=== PATIENT | male | born 1995 | race Caucasian/White ===

== ENCOUNTER 2017-07-16 16:44 | Inpatient (IN) | payer OTHER ==
[~2017-07-16] VITALS: Ht 172.7 cm; Wt 87.0 kg
[2017-07-16 17:13] LABS: MEAN CORPUSCULAR HEMOGLOBIN 31.5 pg (27.0-33.0); MEAN CORPUSCULAR HGB CONC 35.3 g/dl (32.0-36.5); MEAN CORPUSCULAR VOLUME 89.2 fl (80.0-96.0); RED CELL DISTRIBUTION WIDTH 12.8 % (11.5-14.5); WHITE BLOOD COUNT 7.8 K/mm3 (4.0-10.0)
[2017-07-16 17:40] LABS: ALBUMIN 4.1 GM/DL (3.2-5.2); ALBUMIN/GLOBULIN RATIO 1.17 (1.00-1.93); ALKALINE PHOSPHATASE 108 U/L (45-117); ALT/SGPT 32 U/L (12-78); ANION GAP 8 MEQ/L (8-16); AST/SGOT 17 U/L (15-37); BILIRUBIN,DIRECT < 0.1 MG/DL (0.0-0.2); BILIRUBIN,TOTAL 0.2 MG/DL (0.2-1.0); BLOOD UREA NITROGEN 14 MG/DL (7-18); CALCIUM LEVEL 8.8 MG/DL (8.5-10.1); CARBON DIOXIDE LEVEL 26 MEQ/L (21-32); CHLORIDE LEVEL 108 MEQ/L (98-107); GLUCOSE, FASTING 103 MG/DL (70-105); POTASSIUM SERUM 4.1 MEQ/L (3.5-5.1); SODIUM LEVEL 142 MEQ/L (136-145); TOTAL PROTEIN 7.6 GM/DL (6.4-8.2)
[2017-07-16 17:50] LABS: METHADONE URINE NEGATIVE (NEGATIVE)
[2017-07-16 20:55] VITALS: BP 143/76
[2017-07-16] MEDS ORDERED: MAALOX 30 ML SUSP *UDC PO PRN (22:30)
[2017-07-16] MEDS ORDERED: MOM 30ML SUSPENSION UDC PO PRN (22:30)
[2017-07-16] MEDS ORDERED: traZODone 50 MG TAB PO PRN (22:30)
[2017-07-16] MEDS ORDERED: ACETAMINOPHEN TAB 650MG DOSE (2X325MG) PO PRN (22:30)
[2017-07-17 06:24] VITALS: BP 127/58
[2017-07-17] MEDS ORDERED: CitaloPRAM (CeleXA) 10 MG TABLET PO SCH (09:00)
--- NOTE | 2017-07-17 09:23 | HPEPDOC ---
Medical History and Physical Date of Admission Jul 16, 2017 at 19:20 History and Physical PCP: [facility] ATTENDING: Dr. Emanuel Ulrich HPI: 21yo M admitted to [facility] for unspecified depressive disorder, being medically examined today. No acute medical complaints today. Denies any fevers, chills, weakness, fatigue, OSORIO, CP, SOB, cough, palpitations, abdominal pain, N/V /D or changes in bowel or bladder habits. 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 ROS: As noted in HPI, otherwise 11pt ROS of systems reviewed and unremarkable. PE: GEN: 21yo M, appears stated age. Well-nourished, well developed. No acute distress. Alert and oriented x 3. Pleasant, interactive. HEENT: Normocephalic, atraumatic. Pupils are equal, round, and reactive to light. Extraocular movements are intact. No nystagmus appreciated. Sclera are nonicteric. Conjunctiva without injection. Nose midline. Nasal turbinates without bogginess. EACs both patent BL. TMs both visualized and [place] with good cone of light, no bulging or erythema. No facial asymmetry. Moist mucous membranes. Dentition fair. Pharynx pink and moist, no cobblestoning. Neck supple , trachea midline. No lymphadenopathy or thyromegaly appreciated. CHEST: Regular rate and rhythm, +S1, +S2 LUNGS: Clear to auscultation bilaterally. No wheezes, rales, or rhonchi. Breathing appears symmetric and easy. Patient is speaking in full sentences. No accessory muscle use. ABD: Round, soft, non-tender, non-distended. +Bowel sounds throughout. No rebound or guarding. No costovertebral angle tenderness. EXT: Pulses 2+ bilaterally dorsalis pedis and radial. No lower extremity edema appreciated. SKIN: [place], dry, warm. Capillary refill <2sec. No rashes. NEURO: Alert and oriented x 3. Cranial nerves III-XII are intact. No focal deficits appreciated. EKG: Pending A&P: 21yo M admitted to [facility] for unspecified depressive disorder, 1. Psych. Plan per Psychiatry. Obtain baseline EKG to assure the safety of psychiatric medications as they can prolong the QT interval. 2. Follow up with PCP on discharge. 3. Staff member Bill present throughout exam. Vital Signs Vital Signs Date Time Temp Pulse Resp B/P (MAP) Pulse Ox O2 Delivery O2 Flow Rate FiO2 07/17/17 06:24 98.4 70 16 127/58 (81) Room Air 07/16/17 20:36 98 Laboratory Data Labs 24H Laboratory Tests 2 07/16/17 17:00: Anion Gap 8, Calcium Level 8.8, Aspartate Amino Transf (AST/SGOT) 17, Alanine Aminotransferase (ALT/SGPT) 32, Alkaline Phosphatase 108, Total Bilirubin 0.2, Direct Bilirubin < 0.1, Total Protein 7.6, Albumin 4.1, Albumin/Globulin Ratio 1.17, Thyroid Stimulating Hormone (TSH) 2.410, Salicylates Level < 1.7L, Acetaminophen Level < 2.0L, Ethyl Alcohol Level < 0.003 07/16/17 17:01: Urine Amphetamines Screen NEGATIVE, Urine Benzodiazepines Screen NEGATIVE, Urine Opiates Screen NEGATIVE, Urine Methadone Screen NEGATIVE, Urine Barbiturates Screen NEGATIVE, Urine Phencyclidine Screen NEGATIVE, Urine Cocaine Metabolite Screen NEGATIVE, Urine Cannabinoids Screen NEGATIVE CBC/BMP Laboratory Tests 07/16/17 17:00 Red Blood Count 4.75, Mean Corpuscular Volume 89.2, Mean Corpuscular Hemoglobin 31.5, Mean Corpuscular Hemoglobin Concent 35.3, Red Cell Distribution Width 12.8 Home Medications No Active Prescriptions or Reported Meds Allergies Coded Allergies: No Known Drug Allergy (Verified Allergy, Unknown, 07/16/17) Joann Tracy Jul 17, 2017 09:22
[2017-07-17 18:00] VITALS: BP 178/65
[2017-07-17] MEDS: traZODone 50 MG TAB PO SCH (21:53)
[2017-07-18 06:54] VITALS: BP 135/61
[2017-07-18] MEDS: CitaloPRAM (CeleXA) 20 MG TAB PO SCH (09:39)
--- NOTE | 2017-07-18 12:01 | ECGEPIP ---
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
[2017-07-18 18:00] VITALS: BP 131/63
[2017-07-18] MEDS: traZODone 50 MG TAB PO SCH (22:16)
[2017-07-19 07:04] VITALS: BP 127/68
[2017-07-19] MEDS: CitaloPRAM (CeleXA) 20 MG TAB PO SCH (08:58)
--- NOTE | 2017-07-19 13:06 | MHHPE ---
DATE OF ADMISSION: 07/16/2017 CURRENT MEDICATIONS: None. CHIEF COMPLAINT: Suicidal attempt by suffocating himself with helium. 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 The patient had been researching different ways to commit suicide on the internet. He decided to suffocate himself with helium hooked up to a respirator. He did pass out for about 1 hour, but then woke up. He was disappointed and distressed when he woke up alive. He had other suicidal thoughts such as gunshot or by hanging. His major stress is his job in the [employer]. He finds it very physically demanding. He does not sleep well at night and is often tired and fatigued during the daytime because of this. He gets little pleasure out of life. Life has no meaning for him. His level of energy is poor. Motivation is poor. He has no social contacts. Concentration is poor. He states his appetite fluctuates either up or down. He has gained 6-10 pounds recently. He has no difficulty with PT but does not do any extra. The patient is schedule to be deployed to [place] in July. He admits that this might have contributed to his suicide attempt. No history of panic attacks, obsessive-compulsive disorder (OCD) or posttraumatic stress disorder (PTSD). He does have a history of social phobic symptoms. He does not like being the center of attention. He had very few friends in high school. He has no social network her at the [facility]. Caffeine consumption is moderate to high. He drinks at least one energy drink a day as well as at least one pot of coffee per day. He is warned about caffeine consumption. He is not in current mental health treatment at the [facility]. The patient presented himself to the clinic requesting help. PAST PSYCHIATRIC HISTORY: The patient has never been hospitalized before. He has never been on psychotropics before. No previous history of suicide attempts. He has never seen a psychiatrist before or had therapy. PAST MEDICAL HISTORY: Patient healthy. ALLERGIES TO MEDICATIONS: Patient denies. LEGAL HISTORY: None noted. CHEMICAL DEPENDENCY: Patient denies. FAMILY PSYCH HISTORY: Patient denies. SOCIAL HISTORY: Patient born and raised in [place]. He is a high school graduate. He went into the [employer] right out of high school. Relationship with his parents are good. He has one brother and two sisters. Relationship with them are good as well. WORK HISTORY: Aside from the [employer], is minimal. 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 MENTAL STATUS EXAMINATION: Patient is alert, oriented and cooperative. Affect appears sad. Mood is moderately to severely depressed with recent suicidal ideation and attempt. He is not hearing voices. No paranoia or thought disorder. Patient reports social phobic symptoms. Insight and judgment appear limited. He is a potential danger to himself. Memory functions appear intact. Grooming and hygiene appear good. DIAGNOSIS: Major depression, severe. Social anxiety disorder. PLAN: 39 confirmed. Patient to start a trial of citalopram with the use of trazodone at bedtime for sleep. Patient encouraged to become active in the hospital milieu. Patient informed that today is my last day of working here and that he will have a new psychiatric provider next week.
[2017-07-19 18:00] VITALS: BP 120/59
[2017-07-19] MEDS: traZODone 50 MG TAB PO SCH (22:14)
[2017-07-20 06:27] VITALS: BP 139/65
--- NOTE | 2017-07-20 07:45 | MHIPN ---
DATE: 07/18/2017 CHIEF COMPLAINT: Feels better. SUBJECTIVE: Seen for followup. Indicates feels better, less anxious, less depressed. Says sleep is okay. He denies any suicidal thoughts or intents. MENTAL STATUS EXAMINATION: Neat and cooperative. No agitation. No psychomotor retardation. Coherent. Affect is reactive. Denies any suicidal thoughts or intents. No homicidal ideas or intents. No evidence of any psychosis at present. Judgment and insight are fair. ASSESSMENT: Unspecified depressive disorder. PLAN: Continue current care, observations, encourage participation in activities in the unit. He is also to continue with citalopram at 20 mg daily. VITAL SIGNS: Blood pressure 135/61. Pulse 68. Temperature 96.9.
[2017-07-20] MEDS: CitaloPRAM (CeleXA) 20 MG TAB PO SCH (10:33)
--- NOTE | 2017-07-20 17:21 | MHIPNPDOC ---
[facility] Progress Note Progress Note DATE OF SERVICE: 07/20/17 HISTORY: Patient was seen and evaluated for his progress in the inpatient unit. On evaluation, patient reported that he has been feeling less depressed and able to take a break from his job. He described the events which led up to his admission to the inpatient unit and reported that he was depressed because of the job. He thinks that he is not appreciated in the [employer] and everybody around him, has been making him feel down because of that he was thinking about suicide for month to 2 months and he researched about pain less suicide made him think about using helium to , but now he feels much better and thinks that he does not want to and happy about not dying with that attempt. He currently denies any suicidal or homicidal ideations sleeping and eating well and planning to go back to college to finish his college. Encouraged to participate in the unit activities and also interact with others in the unit. VITAL SIGNS: See below. CURRENT MEDICATIONS: See below. 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 Major depression without psychotic features. ASSESSMENT: Patient seemed to be improving on current treatment MANAGEMENT PLAN:, Possible increase in Celexa. Continue other treatment. TIME SPENT: 15 minutes. Vital Signs Vital Signs Date Time Temp Pulse Resp B/P (MAP) Pulse Ox O2 Delivery O2 Flow Rate FiO2 07/20/17 06:27 97.7 60 16 139/65 (89) Room Air 07/16/17 20:36 98 Current Medications Current Medications Citalopram Hydrobromide (CeleXA) 20 mg DAILY PO Last administered on 07/20/17t 10:33; Start 07/18/17 at 09:00; Stop 08/17/17 at 08:59 Trazodone HCl (Desyrel) 50 mg QHS PO Last administered on 07/19/17 22:14; Start 07/17/17 at 21:00; Stop 08/15/17 at 22:29 Allergies Coded Allergies: No Known Drug Allergy (Verified Allergy, Unknown, 07/16/17) DEON QUIJANO MD Jul 20, 2017 17:21
[2017-07-20 18:00] VITALS: BP 112/59
[2017-07-20] MEDS: traZODone 50 MG TAB PO SCH (21:19)
--- NOTE | 2017-07-20 22:06 | MHIPN ---
DATE: 07/19/2017 CHIEF COMPLAINT: Says feels better. SUBJECTIVE: He is seen for followup. Indicates feels good, and that he had a good night. Mood is improved, feels less anxious, appetite is good. MENTAL STATUS EXAMINATION: He is sitting up in bed. He is cooperative. He is coherent. No agitation. No psychomotor retardation. Affect fairly broad. He denies any thoughts of harming himself or anyone else. No evidence of any psychosis. Cognition grossly intact. Judgment good. Insight is fair. ASSESSMENT: Unspecified depressive disorder. PLAN: He is to continue the current care and observations. He is to be encouraged to participate in activities in the unit. VITAL SIGNS: Blood pressure 127/68, pulse 63, temperature 97.8.
[2017-07-21 07:37] VITALS: BP 110/56
[2017-07-21] MEDS: CitaloPRAM (CeleXA) 10 MG TABLET PO SCH (09:07)
[2017-07-21 18:00] VITALS: BP 139/75
--- NOTE | 2017-07-21 19:02 | MHIPNPDOC ---
[facility] Progress Note Progress Note DATE OF SERVICE: 07/21/17 HISTORY: Patient was seen and evaluated for his progress in the inpatient psychiatric unit on the evaluation. Patient reported that he has been feeling fine and less depressed but he remains in his room most of the day and does not participate in any activities in the unit. He sleeps late during the day and does not interact with anyone in the unit, even after multiple encouragement. He denies any suicidal or homicidal ideations, but seemed to be minimizing his symptoms of depression. He denies any recent anxiety attacks, but reported that his anxiety is mostly connected to his work place because they stresses him out. He is eating fine and denies any recent weight loss or gain. He reported that he was able to tolerate the increased dose of Celexa and denies any side effects of the medications. VITAL SIGNS: See below. CURRENT MEDICATIONS: Citalopram Hydrobromide (CeleXA) 20 mg DAILY PO Last administered on 07/20/17 10:33; Start 07/18/17 at 09:00; Stop 08/17/17 at 08:59 Trazodone HCl (Desyrel) 50 mg QHS PO Last administered on 07/19/17 22:14; Start 07/17/17 at 21:00; Stop 08/15/17 at 22:29 MENTAL STATUS EXAMINATION: 21yo male sitting in the chair, looks appropriate for the stated age, fair hygiene and grooming, normal psychomotor activities, no abnormal movements, cooperative with fair eye contact, speech is normal in rate, rhythm, amount and prosody, mood is 'fine', affect full and mood congruent, thought process is logical and goal directed, denies suicidal and homicidal ideations, denies hallucinations, no delusions elicited, aaox3, fair immediate, short term and nursing home memory, limited insight, judgement and fair impulse control DIAGNOSES: 1. Major depression without psychotic features. ASSESSMENT: Patient's symptom be minimizing his symptoms and currently denies any suicidal or homicidal ideations MANAGEMENT PLAN:. Continue current treatment. TIME SPENT: 15 minutes. Vital Signs Vital Signs Date Time Temp Pulse Resp B/P (MAP) Pulse Ox O2 Delivery O2 Flow Rate FiO2 07/21/17 18:00 98.1 74 16 139/75 (96) Room Air 07/16/17 20:36 98 Allergies Coded Allergies: No Known Drug Allergy (Verified Allergy, Unknown, 07/16/17) DEON QUIJANO MD Jul 21, 2017 19:02
[2017-07-21] MEDS: traZODone 50 MG TAB PO SCH (21:24)
[2017-07-22 06:55] VITALS: BP 118/60
[2017-07-22] MEDS: CitaloPRAM (CeleXA) 10 MG TABLET PO SCH (08:41)
--- NOTE | 2017-07-22 17:46 | MHIPNPDOC ---
[facility] Progress Note Progress Note DATE OF SERVICE: 07/22/17 HISTORY: Patient was seen lying in the bed. He makes to himself and most of her time in his room mid-very few interaction with others in the unit and limited participation in the unit activities. Patient was encouraged again to participate more in the unit activities. He continues to deny any suicidal or homicidal ideations, but seems to be internally preoccupied. He is able to tolerate increased doses of the current medication Celexa and denies any side effects of the medications sleeping and eating fine and denies any psychotic symptoms. VITAL SIGNS: See below. 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 Major depression without psychotic features. ASSESSMENT: Patient's symptom be minimizing his symptoms and currently denies any suicidal or homicidal ideations MANAGEMENT PLAN:. Continue current treatment. TIME SPENT: 15 minutes. Vital Signs Vital Signs Date Time Temp Pulse Resp B/P (MAP) Pulse Ox O2 Delivery O2 Flow Rate FiO2 07/22/17 06:55 98.4 62 16 118/60 (79) 07/21/17 18:00 Room Air 07/16/17 20:36 98 Allergies Coded Allergies: No Known Drug Allergy (Verified Allergy, Unknown, 07/16/17) DEON QUIJANO MD Jul 22, 2017 17:46
[2017-07-22 18:00] VITALS: BP 121/60
[2017-07-22] MEDS: traZODone 50 MG TAB PO SCH (21:20)
[2017-07-23 06:20] VITALS: BP 107/62
[2017-07-23] MEDS: CitaloPRAM (CeleXA) 10 MG TABLET PO SCH (08:29)
--- NOTE | 2017-07-23 16:48 | MHIPNPDOC ---
[facility] Progress Note Progress Note DATE OF SERVICE: 07/23/17 HISTORY: Patient was seen and evaluated for his progress in psychiatry unit. On evaluation, patient reported that he has been feeling better today. He woke up on time and participated in the unit activity of group therapy and also interacting with others in the unit. Encourage patient to participate more frequently and interact with others more frequently. 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 He is worried that all the stresses will make him feel depressed again. Encourage patient to journal and also list coping skills and practice dose coping skills. Also, encouraged patient to go for coping card, which he can use while working, taking his medications regularly and denies any side effects. Sleeping and eating fine. Denies any hallucinations or paranoid thoughts. VITAL SIGNS: See below. CURRENT MEDICATIONS: Citalopram Hydrobromide (CeleXA) 30 mg DAILY PO Trazodone HCl (Desyrel) 50 mg QHS PO MENTAL STATUS EXAMINATION: 21yo male sitting in the chair, looks appropriate for the stated age, fair hygiene and grooming, normal psychomotor activities, no abnormal movements, cooperative with fair eye contact, speech is normal in rate, rhythm, amount and prosody, mood is 'fine', affect full and mood congruent, thought process is logical and goal directed, denies suicidal and homicidal ideations, denies hallucinations, no delusions elicited, aaox3, fair immediate, short term and snf memory, limited insight, judgement and fair impulse control DIAGNOSES: 1. Major depression without psychotic features. ASSESSMENT: Patient's symptom be minimizing his symptoms and currently denies any suicidal or homicidal ideations MANAGEMENT PLAN:. Continue current treatment. TIME SPENT: 15 minutes. Vital Signs Vital Signs Date Time Temp Pulse Resp B/P (MAP) Pulse Ox O2 Delivery O2 Flow Rate FiO2 07/23/17 06:20 98.9 74 16 107/62 (77) 07/22/17 18:00 Room Air Current Medications Current Medications Acetaminophen (Tylenol Tab) 650 mg Q6HP PRN PO HEADACHE or DISCOMFORT; Start at 22:30; Stop 08/15/17 at 22:29 Al Hydrox/Mg Hydrox/Simethicone (Mylanta) 30 ml Q4HP PRN PO HEARTBURN/ INDIGESTION; Start 07/16/17 at 22:30; Stop 08/15/17 at 22:29 Citalopram Hydrobromide (CeleXA) 10 mg DAILY PO Last administered on 07/17/17 11:45; Start 07/17/17 at 09:00; Stop 07/17/17 at 14:38; Status DC Citalopram Hydrobromide (CeleXA) 20 mg DAILY PO Last administered on 07/20/17 10:33; Start 07/18/17 at 09:00; Stop 07/20/17 at 17:23; Status DC Citalopram Hydrobromide (CeleXA) 30 mg DAILY PO Last administered on 07/23/17 08:29; Start 07/21/17 at 09:00; Stop 08/20/17 at 08:59 Home Med (Med Rec Complete!) ASDIRECTED XX ; Start 07/16/17 at 19:00; Stop at 19:00; Status DC Magnesium Hydroxide (Milk Of Magnesia) 30 ml DAILYPRN PRN PO CONSTIPATION; Start 07/16/17 at 22:30; Stop 08/15/17 at 22:29 Trazodone HCl (Desyrel) 50 mg QHS PO Last administered on 07/22/17 21:20; Start 07/17/17 at 21:00; Stop 08/15/17 at 22:29 Trazodone HCl (Desyrel) 50 mg QHSP PRN PO INSOMNIA; Start 07/16/17 at 22:30; Stop 07/17/17 at 22:30; Status DC Allergies Coded Allergies: No Known Drug Allergy (Verified Allergy, Unknown, 07/16/17) DEON QUIJANO MD Jul 23, 2017 16:48
[2017-07-23 18:00] VITALS: BP 133/60
[2017-07-23] MEDS: traZODone 50 MG TAB PO SCH (21:37)
[2017-07-24 06:53] VITALS: BP 104/65
[2017-07-24] MEDS: CitaloPRAM (CeleXA) 10 MG TABLET PO SCH (08:55)
--- NOTE | 2017-07-24 15:34 | MHIPNPDOC ---
[facility] Progress Note Progress Note DATE OF SERVICE: 07/24/17 HISTORY: Patient was seen and evaluated for his progress in the inpatient psychiatry unit. On evaluation, patient reported that he has been feeling better and now days. He is able to come out of his room and communicate with his peers and other staff members in the unit. He is also getting involved in the unit activities including group therapy and milieu treatment. Patient was encouraged to continue that. He continued to deny any suicidal or homicidal ideations and thinks that his depression is more under control. 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 He is future oriented and thinking about going to college after completing [employer] in about a year. VITAL SIGNS: See below. 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 Major depression without psychotic features. ASSESSMENT: Currently denies any suicidal or homicidal ideations MANAGEMENT PLAN:. Increased the dose of Celexa to 40 mg a day. Continue the rest of the treatment. Discharge planning in progress TIME SPENT: 15 minutes. Vital Signs Vital Signs Date Time Temp Pulse Resp B/P (MAP) Pulse Ox O2 Delivery O2 Flow Rate FiO2 07/24/17 06:53 96.7 55 16 104/65 (78) Room Air Current Medications Current Medications Acetaminophen (Tylenol Tab) 650 mg Q6HP PRN PO HEADACHE or DISCOMFORT; Start at 22:30; Stop 08/15/17 at 22:29 Al Hydrox/Mg Hydrox/Simethicone (Mylanta) 30 ml Q4HP PRN PO HEARTBURN/ INDIGESTION; Start 07/16/17 at 22:30; Stop 08/15/17 at 22:29 Citalopram Hydrobromide (CeleXA) 10 mg DAILY PO Last administered on 07/17/17 11:45; Start 07/17/17 at 09:00; Stop 07/17/17 at 14:38; Status DC Citalopram Hydrobromide (CeleXA) 20 mg DAILY PO Last administered on 07/20/17 10:33; Start 07/18/17 at 09:00; Stop 07/20/17 at 17:23; Status DC Citalopram Hydrobromide (CeleXA) 30 mg DAILY PO Last administered on 07/24/17 08:55; Start 07/21/17 at 09:00; Stop 07/24/17 at 13:34; Status DC Citalopram Hydrobromide (CeleXA) 40 mg DAILY PO ; Start 07/25/17 at 09:00; Stop 08/24/17 at 08:59 Home Med (Med Rec Complete!) ASDIRECTED XX ; Start 07/16/17 at 19:00; Stop at 19:00; Status DC Magnesium Hydroxide (Milk Of Magnesia) 30 ml DAILYPRN PRN PO CONSTIPATION; Start 07/16/17 at 22:30; Stop 08/15/17 at 22:29 Trazodone HCl (Desyrel) 50 mg QHS PO Last administered on 07/23/17 21:37; Start 07/17/17 at 21:00; Stop 08/15/17 at 22:29 Trazodone HCl (Desyrel) 50 mg QHSP PRN PO INSOMNIA; Start 07/16/17 at 22:30; Stop 07/17/17 at 22:30; Status DC Allergies Coded Allergies: No Known Drug Allergy (Verified Allergy, Unknown, 07/16/17) DEON QUIJANO MD Jul 24, 2017 15:33
[2017-07-24 18:00] VITALS: BP 130/72
[2017-07-24] MEDS: traZODone 50 MG TAB PO SCH (21:20)
[2017-07-25 06:00] VITALS: BP 124/82
[2017-07-25] MEDS: CitaloPRAM (CeleXA) 20 MG TAB PO SCH (08:07)
[2017-07-25 18:00] VITALS: BP 122/62
[2017-07-25] MEDS: traZODone 50 MG TAB PO SCH (23:12)
[2017-07-26 06:45] VITALS: BP 105/58
[2017-07-26] MEDS: CitaloPRAM (CeleXA) 20 MG TAB PO SCH (11:29)
[2017-07-26 18:00] VITALS: BP 121/88
[2017-07-26] MEDS: traZODone 50 MG TAB PO SCH (21:26)
[2017-07-27 06:38] VITALS: BP 114/53
[2017-07-27] MEDS: CitaloPRAM (CeleXA) 20 MG TAB PO SCH (09:07)
[2017-07-27] MEDS ORDERED: TRAZO50TA PO (10:56)
[2017-07-27] MEDS ORDERED: CELE20TA PO (10:56)
--- NOTE | 2017-07-27 16:08 | MHDSPDOC ---
[facility] Discharge Summary Discharge Summary DATE OF ADMISSION: Jul 16, 2017 at 19:20 DATE OF DISCHARGE: Jul 27, 2017 at 12:50 DISCHARGE DIAGNOSES: 1. Major depressive disorder without psychosis. 2.. Anxiety disorder. REASON FOR ADMISSION:, Depression, anxiety and suicidal ideations with suicide attempt by using helium. From H&P note: "CHIEF COMPLAINT: Suicidal attempt by suffocating himself with helium. 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 The patient had been researching different ways to commit suicide on the internet. He decided to suffocate himself with helium hooked up to a respirator. He did pass out for about 1 hour, but then woke up. He was disappointed and distressed when he woke up alive. He had other suicidal thoughts such as gunshot or by hanging. His major stress is his job in the [employer]. He finds it very physically demanding. He does not sleep well at night and is often tired and fatigued during the daytime because of this. He gets little pleasure out of life. Life has no meaning for him. His level of energy is poor. Motivation is poor. He has no social contacts. Concentration is poor. He states his appetite fluctuates either up or down. He has gained 6-10 pounds recently. He has no difficulty with PT but does not do any extra. The patient is schedule to be deployed to [place] in July. He admits that this might have contributed to his suicide attempt. No history of panic attacks, obsessive-compulsive disorder (OCD) or posttraumatic stress disorder (PTSD). He does have a history of social phobic symptoms. He does not like being the center of attention. He had very few friends in high school. He has no social network her at the [facility]. Caffeine consumption is moderate to high. He drinks at least one energy drink a day as well as at least one pot of coffee per day. He is warned about caffeine consumption. He is not in current mental health treatment at the [facility]. The patient presented himself to the clinic requesting help. PAST PSYCHIATRIC HISTORY: The patient has never been hospitalized before. He has never been on psychotropics before. No previous history of suicide attempts. He has never seen a psychiatrist before or had therapy. PAST MEDICAL HISTORY: Patient healthy. ALLERGIES TO MEDICATIONS: Patient denies. LEGAL HISTORY: None noted. CHEMICAL DEPENDENCY: Patient denies. FAMILY PSYCH HISTORY: Patient denies. SOCIAL HISTORY: Patient born and raised in [place]. He is a high school graduate. He went into the [employer] right out of high school. Relationship with his parents are good. He has one brother and two sisters. Relationship with them are good as well." CONSULTANTS INVOLVED: Medical evaluation TREATMENT AND PROGRESS ON THE UNIT :. Patient was started on medications including Celexa and trazodone when necessary for sleep. He was also started on various therapy in the unit including group therapy and milieu treatment. Celexa was titrated up to 40 mg and trazodone was continued for sleep problems. He responded well to the treatment and denied any side effect of the medications. HOSPITAL COURSE: On admission and initial phase of treatment in the inpatient psychiatric unit, Patient continued to be depressed with waving thoughts of suicide. He remained to himself with limited interactions with others in the unit and no participation in the unit activities, but he responded well to the treatment and was able to start participating in unit activities. Discussed about coping mechanisms and he was able to identify coping strategies that he would like to use when feeling overwhelmed. Patient did not need any restraints , IM medications or constant observation while being in the hospital. DISCHARGE ASSESSMENT: Patient denied any suicidal or homicidal ideations, intentions or plans and reported his depression and anxiety has improved a lot. He also reported that he will be willing to seek help if depression got worse or start having suicidal ideations. MENTAL STATUS EXAMINATION ON DISCHARGE: 21yo male sitting in the chair, looks appropriate for the stated age, fair hygiene and grooming, normal psychomotor activities, no abnormal movements, cooperative with fair eye contact, speech is normal in rate, rhythm, amount and prosody, mood is 'fine', affect full and mood congruent, thought process is logical and goal directed, denies suicidal and homicidal ideations, denies hallucinations, no delusions elicited, aaox3, fair immediate, short term and chcf memory, improving insight, judgement and fair impulse control MEDICATIONS ON DISCHARGE: Citalopram Hydrobromide (CeleXA) 40 mg DAILY PO Trazodone HCl (Desyrel) 50 mg QHS PO PLAN/FOLLOWUP ARRANGEMENTS: As previously arranged and noted in associate financial planner's note. The amount of time spent in the coordination of care for this patient was approximately. 30 minutes. Vital Signs/I&Os Vital Signs Date Time Temp Pulse Resp B/P (MAP) Pulse Ox O2 Delivery O2 Flow Rate FiO2 07/27/17 06:38 98.1 51 16 114/53 (73) Room Air Medications Scheduled Citalopram Hydrobromide (Celexa) 20 Mg Tab, 40 MG PO DAILY for depression for 30 Days, #60 Trazodone HCl (Trazodone HCl) 50 Mg Tab, 50 MG PO QHS for insommnia for 30 Days , #30 Allergies Coded Allergies: No Known Drug Allergy (Verified Allergy, Unknown, 07/16/17) DEON QUIJANO MD Jul 27, 2017 16:08
== END 2017-07-27 12:50 | disposition home or self-care (01) | DRG 881 ==
LOC: M ED 16:44 → M ED INP 19:20 → M PSY 20:52
PROVIDERS: ADMIT Psychiatry & Neurology Psychiatry; ATTEND Psychiatry & Neurology Psychiatry
DX: F32.9 Major depressive disorder, single episode, unspecified (principal); R45.851 Suicidal ideations; F41.9 Anxiety disorder, unspecified; Z91.5 Personal history of self-harm; Z79.899 Other long term (current) drug therapy